=== PATIENT | female | born 1975 | race American Indian/Alaskan Native ===

== ENCOUNTER 2021-01-06 09:31 | Emergency (ER) | payer SELFPAY ==
[2021-01-06 09:39] VITALS: BP 146/88
--- NOTE | 2021-01-06 10:40 | Emergency Department Report ---
- General Chief Complaint: Dyspnea/Respdistress Stated Complaint: throat pain/headache Time Seen by Provider: 01/06/21 10:09 Source: patient Mode of arrival: Ambulatory Limitations: No Limitations - History of Present Illness Initial Comments: Patient is a 45-year-old female presents emergency room with complaints of sore throat that began 3 days ago. She states that she has discomfort with swallowing but is able to tolerate p.o. intake. She has associated nasal congestion, sinus pressure, headache, ear pressure. Patient states that she had a fever of 101 last night. She denies any nausea, vomiting, shortness of breath, chest pain. Patient states that she did travel to the country of [place] 2 weeks ago. Patient denies any past medical history. No allergies to medic ations. She has been fully vaccinated for COVID-19. - Related Data Previous Rx's Medication Instructions Recorded Last Taken Type Benzonatate [Tessalon Perles] 100 mg PO Q8HR PRN #12 capsule 01/06/21 Unknown Rx Butalb/Acetaminophen/Caffeine 1 cap PO Q8HR PRN #10 cap 01/06/21 Unknown Rx [Fioricet 50-300-40 mg CAP] Fluticasone [Flonase] 1 spray NS QDAY #1 bottle 01/06/21 Unknown Rx guaiFENesin ER [Mucinex ER] 600 mg PO Q12H #14 tablet.er 01/06/21 Unknown Rx Allergies Allergy/AdvReac Type Severity Reaction Status Date / Time No Known Allergies Allergy Unverified 01/06/21 09:39 ED Review of Systems ROS: Stated complaint: throat pain/headache Other details as noted in HPI Comment: All other systems reviewed and negative ED Past Medical Hx - Medications Home Medications: Home Medications Medication Instructions Recorded Confirmed Last Taken Type Benzonatate [Tessalon Perles] 100 mg PO Q8HR PRN #12 capsule 01/06/21 Unknown Rx Butalb/Acetaminophen/Caffeine 1 cap PO Q8HR PRN #10 cap 01/06/21 Unknown Rx [Fioricet 50-300-40 mg CAP] Fluticasone [Flonase] 1 spray NS QDAY #1 bottle 01/06/21 Unknown Rx guaiFENesin ER [Mucinex ER] 600 mg PO Q12H #14 tablet.er 01/06/21 Unknown Rx ED Physical Exam - General Limitations: No Limitations General appearance: alert, in no apparent distress - Head Head exam: Present: atraumatic, normocephalic - Eye Eye exam: Present: normal appearance - ENT ENT exam: Present: normal orophraynx, mucous membranes moist, TM's normal bilaterally, normal external ear exam - Respiratory Respiratory exam: Present: normal lung sounds bilaterally. Absent: respiratory distress, wheezes, rales, rhonchi, stridor, chest wall tenderness, accessory muscle use, decreased breath sounds, prolonged expiratory - Cardiovascular Cardiovascular Exam: Present: regular rate, normal rhythm, normal heart sounds. Absent: systolic murmur, diastolic murmur, rubs, gallop - Neurological Exam Neurological exam: Present: alert, oriented X3 - Psychiatric Psychiatric exam: Present: normal affect, normal mood - Skin Skin exam: Present: warm, dry, intact ED Course Vital Signs 01/06/21 09:38 Temperature 98.7 F Pulse Rate 87 Respiratory 16 Rate Blood Pressure 146/88 [Right] O2 Sat by Pulse 98 Oximetry ED Medical Decision Making - Radiology Data Radiology results: report reviewed Ordering Physician: KYLER RODRIGUES Date of Service: 01/06/21 Procedure(s): XR chest routine 2V Accession Number(s): [id number] cc: KYLER RODRIGUES Fluoro Time In Minutes: CHEST 2 VIEWS INDICATION / CLINICAL INFORMATION: cough,fever. COMPARISON: None available. FINDINGS: SUPPORT DEVICES: None. HEART / MEDIASTINUM: No significant abnormality. LUNGS / PLEURA: No significant pulmonary or pleural abnormality. No pneumothorax. ADDITIONAL FINDINGS: No significant additional findings. IMPRESSION: 1. No acute findings. Signer Name: Rich Mo MD Signed: 01/06/2021 11:04 AM Workstation Name: [id number] Transcribed By: TL Dictated By: Rich Mo MD Electronically Authenticated By: Rich Mo MD Signed Date/Time: 01/06/211103 DD/ 03 TD/TT: - Medical Decision Making Patient is a 45-year-old female presents emergency room with complaints of sore throat that began 3 days ago. She states that she has discomfort with swallowing but is able to tolerate p.o. intake. She has associated nasal congestion, sinus pressure, headache, ear pressure. Patient states that she had a fever of 101 last night. She denies any nausea, vomiting, shortness of breath, chest pain. Patient states that she did travel to the country of [place] 2 weeks ago. Patient denies any past medical history. No allergies to medications. She has been fully vaccinated for COVID-19. Vitals are stable. On exam: Normal oropharynx, presence of clear bilaterally, no wheezing, no rales, no rhonchi. rapid strep is negative. CXR: 1. No acute findings. Discussed supportive care and symptomatic treatment with patient. Patient given prescription for symptomatic relief. Advised patient Please take medication as prescribed as needed. Increase fluid intake. Follow-up with your primary care doctor. Return to emergency room immediately for any new or worsening symptoms. Recommend outpatient COVID-19 testing and if positive will need to self quarantine for 10 days from the onset of your symptoms. Critical care attestation.: If time is entered above; I have spent that time in minutes in the direct care of this critically ill patient, excluding procedure time. ED Disposition Clinical Impression: Upper respiratory infection Qualifiers: URI type: unspecified URI Qualified Code(s): J06.9 - Acute upper respiratory infection, unspecified Disposition: 01 HOME / SELF CARE / HOMELESS Is pt being admited?: No Does the pt Need Aspirin: No Condition: Stable Instructions: Viral Respiratory Infection Additional Instructions: Please take medication as prescribed as needed. Increase fluid intake. Follow- up with your primary care doctor. Return to emergency room immediately for any new or worsening symptoms. Recommend outpatient COVID-19 testing and if positive will need to self quarantine for 10 days from the onset of your symptoms. Prescriptions: Butalb/Acetaminophen/Caffeine [Fioricet 50-300-40 mg CAP] 1 cap PO Q8HR PRN #10 cap PRN Reason: headache Fluticasone [Flonase] 1 spray NS QDAY #1 bottle guaiFENesin ER [Mucinex ER] 600 mg PO Q12H #14 tablet.er Benzonatate [Tessalon Perles] 100 mg PO Q8HR PRN #12 capsule PRN Reason: cough Referrals: EVELINE ALEX MD [Primary Care Provider] - 3-5 Days AUSTIN VILLASENOR MD [Staff Physician] - 3-5 Days [facility] [Provider Group] - 3-5 Days Forms: Work/School Release Form(ED) Time of Disposition: 11:10 Print Language: SLOVENIAN
--- NOTE | 2021-01-06 11:08 | XRay Report ---
CHEST 2 VIEWS INDICATION / CLINICAL INFORMATION: cough,fever. COMPARISON: None available. FINDINGS: SUPPORT DEVICES: None. HEART / MEDIASTINUM: No significant abnormality. LUNGS / PLEURA: No significant pulmonary or pleural abnormality. No pneumothorax. ADDITIONAL FINDINGS: No significant additional findings. IMPRESSION: 1. No acute findings. Signer Name: Rich Mo MD Signed: 01/06/2021 11:04 AM Workstation Name: [id number]
== END 2021-01-06 11:56 | disposition home or self-care (01) ==
LOC: ED 09:31
DX: J06.9 Acute upper respiratory infection, unspecified (principal)
CPT/HCPCS: 71046; 87116; 87430; 99283